=== PATIENT | female | born 1970 ===

== ENCOUNTER 2019-05-24 17:35 | Observation (INO) ==
[2019-05-24] MEDS ORDERED: Ondansetron ODT 4 MG TAB.RAPDIS SL ONE (18:06)
[2019-05-24 18:33] LABS: Basophils % 0.3 %; Eosinophils # 0.1 K/mcL (0.0-0.6); Eosinophils % 1.5 %; Hematocrit 45.8 % (35.3-44.9); Hemoglobin 15.4 g/dL (11.5-15.4); Immature Granulocytes % 0.3 % (0-4); Lymphocytes # 1.7 K/mcL (0.6-4.6); Lymphocytes % 25.7 %; Mean Corpuscular HGB Conc 33.6 g/dL (31.6-35.5); Mean Corpuscular Hemoglobin 30.8 pg (28.0-33.3); Mean Corpuscular Volume 91.6 fL (83.0-100.0); Monocytes # 0.6 K/mcL (0.0-1.3); Monocytes % 9.3 %; Neutrophils # 4.1 K/mcL (1.6-8.9); Platelet Count 206 K/mcL (140-400); Red Cell Distribution Width 13.5 % (11.5-14.5); Segmented Neutrophils % 62.9 %; White Blood Count 6.5 K/mcL (4.3-11.1)
[2019-05-24] MEDS ORDERED: Ketorolac 15 MG/ML VIAL IVP ONE (19:13)
[2019-05-24 19:19] LABS: Alanine Aminotransferase 25 Units/L (7-52); Albumin 4.6 g/dL (3.5-5.7); Albumin/Globulin Ratio 1.4 (1.1-2.2); Alkaline Phosphatase 80 Units/L (34-104); Aspartate Amino Transferase 23 Units/L (13-39); BUN/Creatinine Ratio 15 (6-26); Bilirubin,Direct 0.2 mg/dL (0.0-0.2); Bilirubin,Indirect 0.5 mg/dL (0.0-1.2); Bilirubin,Total 0.7 mg/dL (0.3-1.0); Blood Urea Nitrogen 13 mg/dL (6-20); Calcium 9.8 mg/dL (8.6-10.3); Carbon Dioxide 27 mEq/L (23-29); Chloride 100 mEq/L (98-107); Globulin 3.2 g/dL (2.4-3.5); Glucose 138 mg/dL (70-105); Lipase 23 Units/L (11-82); Osmolality,Calculated 290 (280-300); Potassium 3.5 mEq/L (3.5-5.1); Sodium 139 mEq/L (136-145); Total Protein 7.8 g/dL (6.4-8.9); eGFR For African Americans > 60 (> 60); eGFR For Non-African Americans > 60 (> 60)
[2019-05-24] MEDS ORDERED: Ertapenem 1,000 MG in 0.9 % Sodium Chloride Mini Bag 100 ML IVPB STA (19:44)
[2019-05-24] MEDS ORDERED: Ondansetron 4 MG/2 ML VIAL IVP PRN (20:21)
[2019-05-24] MEDS ORDERED: Ketorolac 30 MG/ML VIAL IVP ONE (23:00)
[2019-05-24] MEDS ORDERED: Ketorolac 30 MG/ML VIAL IVP PRN (23:03)
[2019-05-24] MEDS: 0.9 % Sodium Chloride 1,000 ML IVC SCH (23:07)
[2019-05-25] MEDS: 0.9 % Sodium Chloride 1,000 ML IVC SCH (09:16)
[2019-05-25] MEDS ORDERED: Acetaminophen IV 1,000 MG/100 ML INFUS..BTL IVPB ONE (11:47)
[2019-05-25] MEDS ORDERED: *HR* OxyCODONE Immed Rel 5 MG TABLET PO PRN (14:21)
[2019-05-25] MEDS ORDERED: *HR* HYDROmorphone (PF) 1 MG/ML SYRINGE IVP PRN ×2 (14:21→17:12)
[2019-05-25] MEDS ORDERED: *HR* Meperidine 25 MG/ML SYRINGE IVP PRN (14:21)
[2019-05-25] MEDS ORDERED: *HR* Promethazine 25 MG/ML VIAL IVP PRN (14:21)
[2019-05-25] MEDS ORDERED: Ringers Solution, Lactated 1,000 ML IVC SCH ×2 (14:30)
[2019-05-25] MEDS ORDERED: Clindamycin 600 MG/50 ML 600 MG/50 ML IV.SOLN IVPB ONE ×2 (15:40→15:46)
[2019-05-25] MEDS ORDERED: Bupivacaine/EPI 1:200k 0.5%PF 30 ML VIAL ONE (15:46)
[2019-05-25] MEDS ORDERED: Isovue-300 50ML VIAL ONE (16:05)
[2019-05-25] MEDS ORDERED: *HR* FentaNYL (PF) 100 MCG/2 ML VIAL ONE ×2 (16:46→17:01)
[2019-05-25] MEDS ORDERED: Ondansetron 4 MG/2 ML VIAL ONE (17:00)
[2019-05-25] MEDS ORDERED: Dexamethasone 4 MG/ML VIAL ONE (17:00)
[2019-05-25] MEDS ORDERED: Lidocaine -MPF 2% 2 ML VIAL ONE ×2 (17:01→17:02)
[2019-05-25] MEDS ORDERED: *HR* Midazolam HCl 2 MG/2 ML VIAL ONE (17:01)
[2019-05-25] MEDS ORDERED: *HR* Rocuronium Bromide 50 MG/5 ML VIAL ONE (17:01)
[2019-05-25] MEDS ORDERED: Ketorolac 30 MG/ML VIAL ONE (17:03)
[2019-05-25] MEDS ORDERED: Ondansetron 4 MG/2 ML VIAL IVP ONE (17:12)
[2019-05-25] MEDS ORDERED: Ondansetron 4 MG/2 ML VIAL IVP PRN (18:05)
[2019-05-25] MEDS ORDERED: *HR* OxyCODONE/APAP 5/325 TABLET PO PRN (18:05)
[2019-05-25] MEDS: Ketorolac 30 MG/ML VIAL IVP PRN (18:24)
[2019-05-26] MEDS: Ketorolac 30 MG/ML VIAL IVP PRN ×2 (00:32→08:27)
[2019-05-26] MEDS: 0.9 % Sodium Chloride 1,000 ML IVC SCH (03:00)
[2019-05-26 07:37] VITALS: BP 132/71
[2019-05-26] MEDS ORDERED: hydroCHLOROthiazide 25 MG TABLET PO SCH (09:00)
== END 2019-05-26 11:45 | disposition home or self-care (01) ==
LOC: 3ANU 17:35 → EMEROOARM 17:35 → 3ANU 20:25
PROVIDERS: ADMIT Surgery; ATTEND Surgery

== ENCOUNTER 2020-01-27 18:02 | Observation (INO) ==
[2020-01-27 18:46] LABS: Bilirubin,Urine Negative (Negative); Blood,Urine Trace (Negative); Clarity,Urine Clear (Clear); Color,Urine Yellow (Yellow); Glucose,Urine (UA) Normal (Normal); Ketones,Urine Negative (Negative); Leukocyte Esterase,Urine Negative (Negative); Nitrite,Urine Negative (Negative); Protein,Urine 100 mg/dL (Neg-Trace); Specific Gravity,Urine 1.023 (1.010-1.025); Urobilinogen,Urine Normal (Normal)
[2020-01-27] MEDS ORDERED: Isovue-370 500 ML BOTTLE IVP ONE (18:47)
[2020-01-27 18:48] LABS: Bacteria,Urine Many per hpf (None-Few); Hyaline Casts,Urine None Seen per lpf (None-Few); Squamous Epithelial Cell,Urine Many per lpf (None-Few)
[2020-01-27 19:38] LABS: Prothrombin Time 11.4 Seconds (9.4-12.1)
[2020-01-27 19:40] LABS: Activated Partial Thrombo Time 28.5 Seconds (26.0-36.0); Basophils % 0.6 %; Eosinophils # 0.1 K/mcL (0.0-0.6); Eosinophils % 1.7 %; Hematocrit 44.6 % (35.3-44.9); Hemoglobin 14.6 g/dL (11.5-15.4); Immature Granulocytes % 0.4 % (0-4); Lymphocytes # 1.3 K/mcL (0.6-4.6); Lymphocytes % 23.3 %; Mean Corpuscular HGB Conc 32.7 g/dL (31.6-35.5); Mean Corpuscular Hemoglobin 32.1 pg (28.0-33.3); Monocytes # 0.6 K/mcL (0.0-1.3); Monocytes % 10.4 %; Neutrophils # 3.4 K/mcL (1.6-8.9); Platelet Count 187 K/mcL (140-400); Red Blood Count 4.55 M/mcL (3.82-4.97); Red Cell Distribution Width 13.4 % (11.5-14.5); Segmented Neutrophils % 63.6 %; White Blood Count 5.4 K/mcL (4.3-11.1)
[2020-01-27 19:55] LABS: Alanine Aminotransferase 25 Units/L (7-52); Albumin 4.6 g/dL (3.5-5.7); Albumin/Globulin Ratio 1.6 (1.1-2.2); Alkaline Phosphatase 81 Units/L (34-104); Aspartate Amino Transferase 22 Units/L (13-39); BUN/Creatinine Ratio 21 (6-26); Bilirubin,Direct 0.1 mg/dL (0.0-0.2); Bilirubin,Indirect 0.4 mg/dL (0.0-1.0); Bilirubin,Total 0.5 mg/dL (0.3-1.0); Blood Urea Nitrogen 18 mg/dL (6-20); Calcium 9.7 mg/dL (8.6-10.3); Carbon Dioxide 27 mEq/L (23-29); Chloride 99 mEq/L (98-107); Globulin 2.9 g/dL (2.4-3.5); Glucose 105 mg/dL (70-105); Lipase 30 Units/L (11-82); Osmolality,Calculated 288 (280-300); Potassium 2.9 mEq/L (3.5-5.1); Sodium 138 mEq/L (136-145); Total Protein 7.5 g/dL (6.4-8.9); Troponin I < 0.03 ng/mL (< 0.04); eGFR For African Americans > 60 (> 60); eGFR For Non-African Americans > 60 (> 60)
[2020-01-27 21:34] LABS: BUN/Creatinine Ratio 26 (6-26); Blood Urea Nitrogen 13 mg/dL (6-20); Calcium 6.2 mg/dL (8.6-10.3); Carbon Dioxide 20 mEq/L (23-29); Chloride 112 mEq/L (98-107); Glucose 74 mg/dL (70-105); Osmolality,Calculated 287 (280-300); Potassium 2.4 mEq/L (3.5-5.1); Sodium 139 mEq/L (136-145); eGFR For African Americans > 60 (> 60); eGFR For Non-African Americans > 60 (> 60)
[2020-01-27] MEDS ORDERED: Potassium Chloride 40 MEQ, Lidocaine 1% 2 ML in 0.9 % Sodium Chloride 500 ML IVPB ONE (21:34)
[2020-01-27 21:58] LABS: Magnesium 1.4 mg/dL (1.6-2.6)
[2020-01-27] MEDS ORDERED: Naloxone 0.4 MG/ML INJ IVP PRN (23:01)
[2020-01-27] MEDS ORDERED: Ondansetron 4 MG/2 ML VIAL IVP PRN (23:01)
[2020-01-27] MEDS ORDERED: Acetaminophen 325 MG TABLET PO PRN (23:01)
[2020-01-28 00:30] LABS: Basophils % 0.3 %; Eosinophils # 0.1 K/mcL (0.0-0.6); Eosinophils % 1.9 %; Hematocrit 43.5 % (35.3-44.9); Hemoglobin 14.4 g/dL (11.5-15.4); Immature Granulocytes % 0.3 % (0-4); Lymphocytes # 1.5 K/mcL (0.6-4.6); Lymphocytes % 23.7 %; Mean Corpuscular HGB Conc 33.1 g/dL (31.6-35.5); Mean Corpuscular Hemoglobin 31.5 pg (28.0-33.3); Mean Corpuscular Volume 95.2 fL (83.0-100.0); Mean Platelet Volume 11.2 fL (9.4-12.4); Monocytes # 0.6 K/mcL (0.0-1.3); Monocytes % 9.4 %; Platelet Count 212 K/mcL (140-400); Red Blood Count 4.57 M/mcL (3.82-4.97); Red Cell Distribution Width 13.3 % (11.5-14.5); Segmented Neutrophils % 64.4 %; White Blood Count 6.3 K/mcL (4.3-11.1)
[2020-01-28 00:44] LABS: BUN/Creatinine Ratio 18 (6-26); Blood Urea Nitrogen 15 mg/dL (6-20); Calcium 9.2 mg/dL (8.6-10.3); Carbon Dioxide 26 mEq/L (23-29); Chloride 102 mEq/L (98-107); Glucose 110 mg/dL (70-105); Osmolality,Calculated 285 (280-300); Potassium 3.8 mEq/L (3.5-5.1); Sodium 137 mEq/L (136-145); eGFR For African Americans > 60 (> 60); eGFR For Non-African Americans > 60 (> 60)
[2020-01-28 04:53] LABS: Basophils % 0.5 %; Eosinophils # 0.1 K/mcL (0.0-0.6); Eosinophils % 2.3 %; Hemoglobin 13.9 g/dL (11.5-15.4); Immature Granulocytes % 0.2 % (0-4); Lymphocytes # 1.1 K/mcL (0.6-4.6); Lymphocytes % 26.5 %; Mean Corpuscular HGB Conc 33.1 g/dL (31.6-35.5); Mean Corpuscular Hemoglobin 31.4 pg (28.0-33.3); Mean Platelet Volume 11.2 fL (9.4-12.4); Monocytes # 0.5 K/mcL (0.0-1.3); Monocytes % 12.3 %; Neutrophils # 2.5 K/mcL (1.6-8.9); Platelet Count 193 K/mcL (140-400); Red Blood Count 4.42 M/mcL (3.82-4.97); Red Cell Distribution Width 13.3 % (11.5-14.5); Segmented Neutrophils % 58.2 %; White Blood Count 4.3 K/mcL (4.3-11.1)
[2020-01-28 05:08] LABS: BUN/Creatinine Ratio 20 (6-26); Blood Urea Nitrogen 16 mg/dL (6-20); Calcium 8.8 mg/dL (8.6-10.3); Carbon Dioxide 24 mEq/L (23-29); Chloride 109 mEq/L (98-107); Glucose 139 mg/dL (70-105); Magnesium 2.6 mg/dL (1.6-2.6); Osmolality,Calculated 291 (280-300); Phosphorous 2.6 mg/dL (2.7-4.5); Potassium 4.3 mEq/L (3.5-5.1); Sodium 139 mEq/L (136-145); eGFR For African Americans > 60 (> 60); eGFR For Non-African Americans > 60 (> 60)
[2020-01-28] MEDS: Ketorolac 15 MG/ML VIAL IVP PRN ×2 (05:45→12:51)
[2020-01-28] MEDS ORDERED: *HR* Heparin 5,000 UNIT/ML VIAL SQ SCH (06:00)
[2020-01-28] MEDS ORDERED: lisinopriL 10 MG TABLET PO SCH (09:00)
[2020-01-28] MEDS ORDERED: Sulfamethoxazole/Trimeth DS 1 EACH TABLET PO SCH (09:00)
[2020-01-28] MEDS ORDERED: amLODIPine 5 MG TABLET PO SCH (09:00)
[2020-01-28 14:29] VITALS: BP 101/70
== END 2020-01-28 16:30 | disposition home or self-care (01) ==
LOC: 3ANU 18:02 → EMEROOARM 18:02 → 3ANU 22:34
PROVIDERS: ADMIT Student in an Organized Health Care Education/Training Program; ATTEND Student in an Organized Health Care Education/Training Program

== ENCOUNTER 2020-04-09 12:45 | Observation (INO) ==
[2020-04-09] MEDS ORDERED: Ringers Solution, Lactated 1,000 ML IVC SCH ×3 (13:15→21:00)
[2020-04-09] MEDS ORDERED: Clindamycin 600 MG/50 ML 600 MG/50 ML IV.SOLN IVPB ONE (13:23)
[2020-04-09] MEDS ORDERED: Pregabalin 75 MG CAPSULE PO ONE (14:10)
[2020-04-09] MEDS ORDERED: *HR* OxyCODONE Immed Rel 5 MG TABLET PO PRN (14:11)
[2020-04-09] MEDS ORDERED: *HR* Promethazine 25 MG/ML VIAL IVP PRN (14:11)
[2020-04-09] MEDS ORDERED: Ondansetron 4 MG/2 ML VIAL IVP ONE (14:11)
[2020-04-09] MEDS ORDERED: *HR* Meperidine 25 MG/ML SYRINGE IVP PRN (14:11)
[2020-04-09] MEDS ORDERED: *HR* Rocuronium Bromide 50 MG/5 ML VIAL ONE (14:55)
[2020-04-09] MEDS ORDERED: Dexamethasone 4 MG/ML VIAL ONE (14:55)
[2020-04-09] MEDS ORDERED: Lidocaine HCL 4 ML Topical Solution (Laryng-O-Jet Kit Sterile Pak) TP ONE (14:55)
[2020-04-09] MEDS ORDERED: Lidocaine -MPF 2% 2 ML VIAL ONE (14:55)
[2020-04-09] MEDS ORDERED: *HR* Midazolam HCl 2 MG/2 ML VIAL ONE (14:55)
[2020-04-09] MEDS ORDERED: Ondansetron 4 MG/2 ML VIAL ONE (14:55)
[2020-04-09] MEDS ORDERED: *HR* Propofol 200 MG/20 ML VIAL IVP ONE (14:56)
[2020-04-09] MEDS ORDERED: *HR* FentaNYL (PF) 100 MCG/2 ML VIAL ONE (14:56)
[2020-04-09] MEDS ORDERED: *HR* HYDROMORPHONE 2 MG/ML VIAL ONE (15:16)
[2020-04-09] MEDS ORDERED: Ketorolac 30 MG/ML VIAL ONE (15:20)
[2020-04-09] MEDS: *HR* HYDROmorphone PF 0.5 MG/0.5 ML SYRINGE IVP PRN ×2 (16:34→16:49)
[2020-04-09] MEDS ORDERED: *HR* Labetalol 20 MG/4 ML SYRINGE IVP PRN (17:01)
[2020-04-09 20:30] LABS: Hemoglobin 10.2 g/dL (11.5-15.4); Mean Corpuscular HGB Conc 32.9 g/dL (31.6-35.5); Mean Corpuscular Volume 100.3 fL (83.0-100.0); Mean Platelet Volume 11.4 fL (9.4-12.4); Platelet Count 191 K/mcL (140-400); Red Blood Count 3.09 M/mcL (3.82-4.97); Red Cell Distribution Width 13.2 % (11.5-14.5); White Blood Count 12.8 K/mcL (4.3-11.1)
[2020-04-09 20:46] LABS: BUN/Creatinine Ratio 19 (6-26); Blood Urea Nitrogen 17 mg/dL (6-20); Calcium 7.9 mg/dL (8.6-10.3); Carbon Dioxide 23 mEq/L (23-29); Chloride 107 mEq/L (98-107); Glucose 235 mg/dL (70-105); Osmolality,Calculated 289 (280-300); Potassium 4.3 mEq/L (3.5-5.1); Sodium 135 mEq/L (136-145); eGFR For African Americans > 60 (> 60); eGFR For Non-African Americans > 60 (> 60)
[2020-04-09] MEDS ORDERED: Ondansetron 4 MG/2 ML VIAL IVP PRN (20:57)
[2020-04-09 21:37] LABS: Troponin I < 0.03 ng/mL (< 0.04)
[2020-04-09] MEDS ORDERED: Ondansetron ODT 4 MG TAB.RAPDIS SL PRN (21:46)
[2020-04-09] MEDS ORDERED: Ibuprofen 200 MG TABLET PO PRN (21:46)
[2020-04-09] MEDS ORDERED: Naloxone 0.4 MG/ML INJ IVP PRN (21:46)
[2020-04-10] MEDS: Ibuprofen 800 MG TABLET PO PRN ×2 (03:06→10:56)
[2020-04-10] MEDS: 0.9 % Sodium Chloride 1,000 ML IVC SCH ×2 (04:20→04:24)
[2020-04-10 07:39] VITALS: BP 112/74
[2020-04-10] MEDS ORDERED: *HR* OxyCODONE/APAP 5/325 TABLET PO PRN (08:04)
[2020-04-10] MEDS ORDERED: lisinopriL 20 MG TABLET PO SCH (09:00)
[2020-04-10] MEDS ORDERED: amLODIPine 5 MG TABLET PO SCH (09:00)
== END 2020-04-10 10:55 | disposition home or self-care (01) ==
LOC: SAMDAY 12:45 → 3ANU 12:45
PROVIDERS: ADMIT Surgery; ATTEND Surgery

== ENCOUNTER 2021-03-01 15:06 | Observation (INO) ==
[2021-03-01] MEDS ORDERED: Aspirin 325 MG TABLET PO ONE (15:56)
[2021-03-01] MEDS ORDERED: Nitroglycerin 0.4 MG TAB.SUBL SL PRN (15:56)
[2021-03-01 16:30] LABS: Basophils % 0.3 %; Eosinophils # 0.1 K/mcL (0.0-0.6); Eosinophils % 2.4 %; Hematocrit 38.3 % (35.3-44.9); Hemoglobin 12.8 g/dL (11.5-15.4); Immature Granulocytes % 0.2 % (0-4); Lymphocytes # 1.6 K/mcL (0.6-4.6); Lymphocytes % 27.7 %; Mean Corpuscular HGB Conc 33.4 g/dL (31.6-35.5); Mean Corpuscular Hemoglobin 31.4 pg (28.0-33.3); Mean Corpuscular Volume 93.9 fL (83.0-100.0); Monocytes # 0.5 K/mcL (0.0-1.3); Monocytes % 7.8 %; Neutrophils # 3.6 K/mcL (1.6-8.9); Platelet Count 211 K/mcL (140-400); Red Blood Count 4.08 M/mcL (3.82-4.97); Red Cell Distribution Width 12.9 % (11.5-14.5); Segmented Neutrophils % 61.6 %; White Blood Count 5.8 K/mcL (4.3-11.1)
[2021-03-01 16:53] LABS: BUN/Creatinine Ratio 20 (6-26); Blood Urea Nitrogen 16 mg/dL (6-20); Calcium 9.4 mg/dL (8.6-10.3); Carbon Dioxide 22 mEq/L (23-29); Chloride 105 mEq/L (98-107); Glucose 100 mg/dL (70-105); Osmolality,Calculated 287 (280-300); Platelet Estimate Normal (Normal); Potassium 3.7 mEq/L (3.5-5.1); Sodium 138 mEq/L (136-145); Troponin I < 0.03 ng/mL (< 0.04); eGFR For African Americans > 60 (> 60); eGFR For Non-African Americans > 60 (> 60)
[2021-03-01] MEDS ORDERED: Nitroglycerin 1 INCH/GM PACKET TP ONE (17:08)
[2021-03-01] MEDS ORDERED: Mag Hydrox/Al Hydrox/Simeth 30 ML UDC PO PRN (17:37)
[2021-03-01] MEDS ORDERED: Ondansetron ODT 4 MG TAB.RAPDIS SL PRN (17:37)
[2021-03-01] MEDS ORDERED: Melatonin 3 MG TABLET PO PRN (17:37)
[2021-03-01] MEDS ORDERED: Naloxone 0.4 MG/ML INJ IVP PRN (17:37)
[2021-03-01] MEDS ORDERED: MOM Conc 10 ML UD.LIQ PO PRN (17:37)
[2021-03-01] MEDS ORDERED: Perflutren Lipid Microsphere 1.3 ML in 0.9 % Sodium Chloride 8.7 ML IVP PRN (17:39)
[2021-03-02 02:58] LABS: Hematocrit 37.8 % (35.3-44.9); Hemoglobin 12.4 g/dL (11.5-15.4); Mean Corpuscular HGB Conc 32.8 g/dL (31.6-35.5); Mean Corpuscular Hemoglobin 30.7 pg (28.0-33.3); Mean Corpuscular Volume 93.6 fL (83.0-100.0); Mean Platelet Volume 11.3 fL (9.4-12.4); Platelet Count 203 K/mcL (140-400); Red Blood Count 4.04 M/mcL (3.82-4.97); White Blood Count 5.2 K/mcL (4.3-11.1)
[2021-03-02 03:20] LABS: Alanine Aminotransferase 20 Units/L (7-52); Albumin 4.2 g/dL (3.5-5.7); Albumin/Globulin Ratio 1.7 (1.1-2.2); Alkaline Phosphatase 68 Units/L (34-104); Aspartate Amino Transferase 16 Units/L (13-39); BUN/Creatinine Ratio 23 (6-26); Bilirubin,Total 0.4 mg/dL (0.3-1.0); Blood Urea Nitrogen 19 mg/dL (6-20); Calcium 9.2 mg/dL (8.6-10.3); Carbon Dioxide 22 mEq/L (23-29); Chloride 107 mEq/L (98-107); Chol/HDL Ratio 5.2 (0-4.9); Cholesterol 178 mg/dL (< 200); Globulin 2.5 g/dL (2.4-3.5); Glucose 122 mg/dL (70-105); HDL Cholesterol 34 mg/dL (40-59); LDL Cholesterol,Calculated 120 mg/dL (< 100); Osmolality,Calculated 292 (280-300); Potassium 3.7 mEq/L (3.5-5.1); Sodium 139 mEq/L (136-145); Total Protein 6.7 g/dL (6.4-8.9); Triglycerides 118 mg/dL (< 150); Troponin I < 0.03 ng/mL (< 0.04); eGFR For African Americans > 60 (> 60); eGFR For Non-African Americans > 60 (> 60)
[2021-03-02] MEDS ORDERED: *HR* Enoxaparin 40 MG/0.4 ML SYRINGE SQ SCH (06:00)
[2021-03-02 07:42] VITALS: BP 102/67
[2021-03-02] MEDS ORDERED: Aspirin 81 MG TAB.CHEW PO SCH (09:00)
== END 2021-03-02 10:26 | disposition home or self-care (01) ==
LOC: 3BNU 15:06 → EMEROOARM 15:06 → SUATTDRO 17:41 → 3BNU 18:33
PROVIDERS: ADMIT Internal Medicine; ATTEND Registered Nurse